=== PATIENT | female | born 1960 | race Caucasian/White ===

== ENCOUNTER 2017-01-04 14:32 | Emergency (ER) | payer OTHER ==
[~2017-01-04] VITALS: Ht 154.9 cm; Wt 69.0 kg
[2017-01-04 14:34] VITALS: BP 118/56; PULSE 119; RESP 22; TEMP 98; O2SAT 97
[2017-01-04 14:43] VITALS: BP 148/63; PULSE 108; RESP 16; O2SAT 97
[2017-01-04] MEDS ORDERED: ALEV220T14 PO (14:48)
[2017-01-04] MEDS ORDERED: PROT40TA PO (14:48)
[2017-01-04] MEDS ORDERED: ALPR0.25 PO (14:48)
[2017-01-04] MEDS ORDERED: ESTR0.5T PO (14:48)
--- NOTE | 2017-01-04 15:06 | PD ---
HPI Chief Complaint: Chest Pain Time Seen by Provider: 14:55 Travel History International Travel<30 days: No Contact w/Intl Traveler<30days: No Traveled to known affect area: No History of Present Illness HPI This patient complains of chest pain. Duration 3 days. Severity is moderate. Location is left upper chest. No injury. Denies fever or cough. No history of cardiac or pulmonary disease. No alleviating factors. It comes and spells that last anywhere from a few minutes to a few hours. It is not exertional. PFSH Past Medical History Anxiety: Yes GERD: Yes Hiatal Hernia: Yes Influenza Vaccination: No ?: Not Past Surgical History Hysterectomy: Yes Tonsillectomy: Yes Social History Alcohol Use: Yes (OCCASIONALLY) Tobacco Use: Yes (5-8 CIGS/DAY) Substance Use: No Allergies-Medications (Allergen,Severity, Reaction): Coded Allergies: No Known Allergies (Unverified , 01/04/17) Reported Meds & Prescriptions Reported Meds & Active Scripts Active Reported Alprazolam 0.25 Mg Tab 0.25 Mg PO HS Aleve Arthritis (Naproxen Sodium) 220 Mg Tab 220 Mg PO BID Estradiol 0.5 Mg Tab 0.5 Mg PO DAILY Protonix (Pantoprazole Sodium) 40 Mg Tab 40 Mg PO DAILY Review of Systems General / Constitutional: No: Fever Eyes: No: Visual changes HENT: No: Headaches Cardiovascular: Positive: Chest Pain or Discomfort Respiratory: No: Shortness of Breath Gastrointestinal: No: Abdominal Pain Genitourinary: No: Dysuria Musculoskeletal: No: Pain Skin: No Rash Neurologic: No: Weakness Psychiatric: No: Depression Endocrine: No: Polydipsia Hematologic/Lymphatic: No: Easy Bruising Physical Exam Narrative GENERAL: Well-nourished, well-developed patient in no apparent distress. SKIN: Focused skin assessment reveals no rash and nodules. Skin is Warm and dry. Multiple tattoos HEAD: Atraumatic. Normocephalic. EYES: Pupils equal and round. No scleral icterus. No injection or drainage. ENT: No nasal bleeding or discharge. Mucous membranes pink and moist. NECK: Trachea midline. No JVD. CARDIOVASCULAR: Regular rate and rhythm. No murmur appreciated. RESPIRATORY: No accessory muscle use. Clear to auscultation. Breath sounds equal bilaterally. GASTROINTESTINAL: Abdomen soft, non-tender, nondistended. Hepatic and splenic margins not palpable. MUSCULOSKELETAL: No obvious deformities. No clubbing. No cyanosis. No edema. Has reproducible left upper chest wall tenderness NEUROLOGICAL: Awake and alert. No obvious cranial nerve deficits. Motor grossly within normal limits. Normal speech. PSYCHIATRIC: Appropriate mood and affect; insight and judgment normal. Data Data Last Documented VS Vital Signs Date Time Temp Pulse Resp B/P Pulse Ox O2 Delivery O2 Flow Rate FiO2 01/04/17 16:35 106 16 124/81 96 Room Air 01/04/17 14:34 98.0 Orders Electrocardiogram (01/04/17 ) Electrocardiogram (01/04/17 15:01) Basic Metabolic Panel (Bmp) (01/04/17 15:01) Ckmb (Isoenzyme) Profile (01/04/17 15:01) Complete Blood Count With Diff (01/04/17 15:01) Troponin I (01/04/17 15:01) Ecg Monitoring (01/04/17 15:01) Iv Access Insert/Monitor (01/04/17 15:01) Oximetry (01/04/17 15:01) Sodium Chloride 0.9% Flush (Ns Flush) (01/04/17 15:15) CKMB (01/04/17 15:14) CKMB% (01/04/17 15:14) Labs Laboratory Tests Test 01/04/17 15:14 White Blood Count 10.4 TH/MM3 Red Blood Count 4.84 MIL/MM3 Hemoglobin 14.1 GM/DL Hematocrit 41.9 % Mean Corpuscular Volume 86.6 FL Mean Corpuscular Hemoglobin 29.2 PG Mean Corpuscular Hemoglobin 33.7 % Concent Red Cell Distribution Width 13.8 % Platelet Count 375 TH/MM3 Mean Platelet Volume 8.4 FL Neutrophils (%) (Auto) 78.9 % Lymphocytes (%) (Auto) 14.2 % Monocytes (%) (Auto) 5.3 % Eosinophils (%) (Auto) 1.1 % Basophils (%) (Auto) 0.5 % Neutrophils # (Auto) 8.2 TH/MM3 Lymphocytes # (Auto) 1.5 TH/MM3 Monocytes # (Auto) 0.6 TH/MM3 Eosinophils # (Auto) 0.1 TH/MM3 Basophils # (Auto) 0.1 TH/MM3 CBC Comment DIFF FINAL Differential Comment Sodium Level 141 MEQ/L Potassium Level 3.7 MEQ/L Chloride Level 106 MEQ/L Carbon Dioxide Level 21.9 MEQ/L Anion Gap 13 MEQ/L Blood Urea Nitrogen 13 MG/DL Creatinine 0.81 MG/DL Estimat Glomerular Filtration 73 ML/MIN Rate Random Glucose 150 MG/DL Calcium Level 8.9 MG/DL Total Creatine Kinase 119 U/L Creatine Kinase MB 1.2 NG/ML Troponin I 0.03 NG/ML MDM Medical Decision Making Medical Screen Exam Complete: Yes Emergency Medical Condition: Yes Medical Record Reviewed: Yes Differential Diagnosis Differential diagnosis includes AR, angina, pericarditis, pleurisy, GERD, anxiety. Narrative Course I have reviewed the patient's electronic medical record. IV placed I reviewed the EKG which shows sinus tachycardia but no ST elevation or ectopy Extended cardiac monitoring shows sinus tachycardia without ectopy. Heart rate is 105 to 115 CBC is normal Metabolic profile is normal CK is normal Troponin is normal Coagulation studies are normal Patient has clear-cut and readily reproducible left upper chest wall tenderness there replicates her left upper chest pain. Does not require inpatient evaluation or urgent stress testing. Workup here is negative. Recommend primary care follow-up Diagnosis Primary Impression: Chest pain in adult Additional Instructions: The patient was advised to follow up with their physician and return if they worsen. Med/Other Pt SpecificInfo: Other Disposition: 01 DISCHARGE HOME Condition: Stable Clayton Fowler MD January 04, 2017 15:06
[2017-01-04] MEDS ORDERED: SODIUM CHLORIDE 0.9% FLUSH 10 ML FLUSH IVF PRN (15:15)
[2017-01-04 15:23] LABS: AUTOMATED NEUTROPHIL # 8.2 TH/MM3 (1.8-7.7); BASOPHIL # 0.1 TH/MM3 (0-0.2); BASOPHIL % 0.5 % (0.0-2.0); EOSINOPHIL # 0.1 TH/MM3 (0-0.4); EOSINOPHIL % 1.1 % (0.0-4.0); HEMATOCRIT 41.9 % (35.0-46.0); HEMO FLAGS DIFF FINAL; LYMPH % 14.2 % (9.0-44.0); LYMPHOCYTE # 1.5 TH/MM3 (1.0-4.8); MEAN CELL VOLUME 86.6 FL (80.0-100.0); MEAN CORPUSCULAR HEMOGLOBIN 29.2 PG (27.0-34.0); MEAN CORPUSCULAR HGB CONC 33.7 % (32.0-36.0); MONO % 5.3 % (0.0-8.0); NEUT % 78.9 % (16.0-70.0); PLATELET COUNT 375 TH/MM3 (150-450); RED BLOOD COUNT 4.84 MIL/MM3 (4.00-5.30); RED CELL DISTRIBUTION WIDTH 13.8 % (11.6-17.2); WHITE BLOOD COUNT 10.4 TH/MM3 (4.0-11.0)
[2017-01-04 15:58] LABS: ANION GAP 13 MEQ/L (5-15); BICARBONATE 21.9 MEQ/L (21.0-32.0); BLOOD UREA NITROGEN 13 MG/DL (7-18); CHLORIDE 106 MEQ/L (98-107); CREATINE KINASE 119 U/L (26-192); GLOMERULAR FILTRATION RATE 73 ML/MIN (>89); POTASSIUM 3.7 MEQ/L (3.5-5.1); SODIUM (NA) 141 MEQ/L (136-145)
[2017-01-04 16:10] LABS: CKMB 1.2 NG/ML (0.5-3.6)
[2017-01-04 16:35] VITALS: BP 124/81; PULSE 106; RESP 16; O2SAT 96
--- NOTE | 2017-01-05 15:04 | EKG ---
Date Performed: 01/04/2017 Time Performed: 14:44:02 PTAGE: 56 years EKG: SINUS TACHYCARDIA POSSIBLE INFERIOR MYOCARDIAL INFARCTION - age undetermined ABNORMAL ECG NO PREVIOUS TRACING DOCTOR: Barney Sims Interpretating Date/Time 01/05/2017 15:01:45
== END 2017-01-04 17:56 | disposition home or self-care (01) ==
LOC: NEPC 14:32
DX: R07.89 Other chest pain (principal); R00.0 Tachycardia, unspecified; R94.31 Abnormal electrocardiogram [ECG] [EKG]; Z72.0 Tobacco use; Z86.59 Personal history of other mental and behavioral disorders; Z87.19 Personal history of other diseases of the digestive system
CPT/HCPCS: 80048; 82550; 82552; 84484; 85025; 93005; 99283